=== PATIENT | female | born 1960 | race African-American/Black ===

== ENCOUNTER 2025-02-19 07:23 | Inpatient (IN) | payer OTHER ==
[~2025-02-19] VITALS: Ht 162.6 cm; Wt 71.2 kg
[2025-02-19 07:28] VITALS: O2SAT 100
[2025-02-19 08:38] LABS: BASOPHILS % 0.5 % (0.0-2.0); EOSINOPHILS % 0.7 % (0.0-5.0); HEMATOCRIT. 35.5 % (36.0-48.0); HEMOGLOBIN. 12.3 g/dL (12.0-16.0); LYMPHOCYTES % 12.7 % (20.0-50.0); MEAN PLATELET VOLUME 8.6 fl (7.4-10.4); MONOCYTES % 8.7 % (2.0-8.0); NEUTROPHILS % 77.4 % (40.0-76.0); PLATELET 251 x1000/uL (130-400); RED BLOOD CELL COUNT 3.95 mill/uL (4.2-5.4); RED CELL DISTRIBUTION WIDTH 13.7 % (11.6-14.6)
[2025-02-19 08:52] LABS: CREATININE 1.3 mg/dL (0.6-1.0)
[2025-02-19 08:53] LABS: UREA NITROGEN BLOOD 30 mg/dL (9-23)
[2025-02-19 09:36] LABS: TROPONIN I HIGH SENSITIVITY 126 ng/L (3.0-34)
[2025-02-19] MEDS ORDERED: IPRATROPIUM/ALBUTEROL 0.5-3(2.5)MG/3ML NEB HHN PRN (11:00)
[2025-02-19] MEDS ORDERED: ACETAMINOPHEN 325MG TABLET PO PRN ×2 (11:00)
[2025-02-19] MEDS ORDERED: MAGNESIUM/ALUMINUM HYDROXIDE/SIMETHICONE 30ML UDC PO PRN (11:00)
[2025-02-19] MEDS ORDERED: ONDANSETRON HCL 4MG/2ML INJ IV PRN (11:00)
[2025-02-19] MEDS ORDERED: HYDRALAZINE 20MG/ML VIAL IV PRN (11:00)
[2025-02-19] MEDS ORDERED: CLONIDINE 0.1MG TABLET PO PRN (11:00)
[2025-02-19] MEDS ORDERED: GUAIFENESIN 200MG/10ML SUGAR FREE UDC PO PRN (11:00)
[2025-02-19] MEDS ORDERED: DOCUSATE SODIUM 100MG CAPSULE PO PRN (11:00)
[2025-02-19 11:33] LABS: PHOSPHORUS 2.2 mg/dL (2.5-4.9)
[2025-02-19 12:00] VITALS: BP 130/80; PULSE 80; RESP 18; TEMP 37; O2SAT 98
[2025-02-19 14:10] VITALS: BP 130/80; PULSE 80; RESP 18; TEMP 37.0296
[2025-02-19] MEDS: KCL 20MEQ/100ML PREMIX 100 ML IV SCH (15:07)
[2025-02-19] MEDS: PANTOPRAZOLE SODIUM 40 MG/VIAL IV SCH (15:07)
[2025-02-19] MEDS: LACTATED RINGERS 1,000 ML IV ONE (15:08)
[2025-02-19] MEDS ORDERED: AMLO5TAB88 MT (15:55)
[2025-02-19] MEDS ORDERED: LOSA100T33 MT (15:55)
[2025-02-19] MEDS ORDERED: POTA15TA11 MT (15:56)
[2025-02-19] MEDS ORDERED: MAGN200T4 MT (15:56)
[2025-02-19 16:00] VITALS: BP 126/74; PULSE 75; RESP 18; TEMP 36.7; O2SAT 100
[2025-02-19 18:20] LABS: INR 1.0
[2025-02-19 18:32] LABS: TROPONIN I HIGH SENSITIVITY 119 ng/L (3.0-34)
[2025-02-19] MEDS: MAGNESIUM 2 G PREMIX 50 ML IV SCH (18:54)
[2025-02-19 19:03] LABS: HEPATITIS C AB NON REACTIVE (Neg) (Negative)
[2025-02-19 20:00] VITALS: BP 139/71; PULSE 76; RESP 18; TEMP 36.7; O2SAT 98
[2025-02-19] MEDS: POTASSIUM PHOSPHATE 20 MMOL in DEXT 5% WATER 243.3333 ML IV SCH (21:06)
[2025-02-19] MEDS: AMLODIPINE 2.5MG TABLET PO SCH (21:06)
[2025-02-20] VITALS: BP 138/66; PULSE 78; RESP 17; TEMP 36.8; O2SAT 98
[2025-02-20 00:50] LABS: TROPONIN I HIGH SENSITIVITY 108 ng/L (3.0-34)
[2025-02-20 04:00] VITALS: BP 115/70; PULSE 68; RESP 17; TEMP 36.4; O2SAT 9
[2025-02-20 07:51] LABS: BASOPHILS % 0.3 % (0.0-2.0); CREATININE 1.1 mg/dL (0.6-1.0); EOSINOPHILS % 1.8 % (0.0-5.0); HEMATOCRIT. 29.8 % (36.0-48.0); HEMOGLOBIN. 10.0 g/dL (12.0-16.0); LYMPHOCYTES % 26.1 % (20.0-50.0); MEAN PLATELET VOLUME 8.2 fl (7.4-10.4); MONOCYTES % 12.8 % (2.0-8.0); NEUTROPHILS % 59.0 % (40.0-76.0); PLATELET 158 x1000/uL (130-400); RED BLOOD CELL COUNT 3.29 mill/uL (4.2-5.4); RED CELL DISTRIBUTION WIDTH 13.4 % (11.6-14.6); TRIGLYCERIDE 127 mg/dL (0-150); UREA NITROGEN BLOOD 33 mg/dL (9-23)
[2025-02-20 07:52] LABS: LDL CHOLESTEROL 90 mg/dL (5-100)
[2025-02-20 07:54] LABS: T4 FREE 1.32 ng/dL (0.89-1.76)
[2025-02-20 08:00] VITALS: BP 142/71; PULSE 70; RESP 20; TEMP 36.7; O2SAT 100
[2025-02-20] MEDS: MULTIVITAMINS,THER W-MINERALS TABLET PO SCH (09:34)
[2025-02-20] MEDS: LOSARTAN 50 MG TABLET PO SCH (09:35)
[2025-02-20 10:53] LABS: ASPARTATE AMINOTRANSFERASE 36 IU/L (<34); BILIRUBIN DIRECT 0.2 mg/dL (<=3.0); BILIRUBIN TOTAL 0.8 mg/dL (0.1-1.0)
[2025-02-20 10:54] LABS: PROTEIN TOTAL 6.1 g/dL (6.0-8.3)
[2025-02-20 12:00] VITALS: BP 141/65; PULSE 70; RESP 20; TEMP 36.6; O2SAT 100
[2025-02-20 12:19] LABS: CLARITY URINE CLEAR (CLEAR); COLOR URINE YELLOW (YELLOW); GLUCOSE URINE NEGATIVE (NEGATIVE); KETONES URINE NEGATIVE (NEGATIVE); LEUKOCYTE ESTERASE URINE TRACE (NEGATIVE); NITRITE URINE NEGATIVE (NEGATIVE); OCCULT BLOOD URINE NEGATIVE (NEGATIVE); PH URINE 7.0 (4.5-8.0); PROTEIN URINE NEGATIVE (NEGATIVE); SPECIFIC GRAVITY URINE 1.020 (1.005-1.030); UROBILINOGEN URINE 0.2 E.U./dL (0.2-1.0)
[2025-02-20 12:55] LABS: BACTERIA URINE 4+; RBC URINE 0-2 /hpf (0-2); SQUAMOUS EPITHELIAL CELL URINE 1+ /lpf (RARE/1+); YEAST URINE NONE SEEN
[2025-02-20 13:26] LABS: *AMPHETAMINES SCREEN URINE NEGATIVE (NEGATIVE); *BARBITURATES SCREEN URINE NEGATIVE (NEGATIVE); *BENZODIAZEPINES SCREEN URINE NEGATIVE (NEGATIVE); *COCAINE SCREEN URINE NEGATIVE (NEGATIVE); CANNABINOID URINE SCREEN NEGATIVE (NEGATIVE); ECSTASY MDMA SCREEN URINE NEGATIVE (NEGATIVE); METHADONE URINE SCREEN NEGATIVE (NEGATIVE); OPIATES URINE SCREEN NEGATIVE (NEGATIVE); PHENCYCLIDINE URINE SCREEN NEGATIVE (NEGATIVE)
[2025-02-20 16:00] VITALS: BP 147/85; PULSE 69; RESP 17; TEMP 36.7; O2SAT 99
[2025-02-20 17:40] VITALS: BP 143/76; PULSE 73; RESP 20; TEMP 98
== END 2025-02-20 18:47 | disposition short-term general hospital (02) | DRG 73 ==
LOC: ER 07:31 → 8WST 09:59 → EDBEDREQ 10:15
PROVIDERS: ADMIT Internal Medicine; ATTEND Internal Medicine
DX: G90.89 Other disorders of autonomic nervous system (principal); I21.4 Non-ST elevation (NSTEMI) myocardial infarction; N17.9 Acute kidney failure, unspecified; E87.6 Hypokalemia; R73.9 Hyperglycemia, unspecified; I95.1 Orthostatic hypotension; I12.9 Hypertensive chronic kidney disease with stage 1 through stage 4 chronic kidney disease, or unspecified chronic kidney disease; N18.9 Chronic kidney disease, unspecified; Z90.711 Acquired absence of uterus with remaining cervical stump
CPT/HCPCS: 36415; 71045; 80048; 80061; 80076; 80305; 81003; 82550; 83036; 83735; 84100; 84439; 84443; 84484; 85025; 86705; 87340; 93005; 94640; 99285; J2470; J3475; J3480; J3490; J7060